=== PATIENT | female | born 1940 | race Hispanic/Latino ===

== ENCOUNTER → 2018-03-26 | Day surgery (SDC) | payer OTHER ==
[2018-03-24 11:51] LABS: BASOPHILS # (AUTO) 0.1 (0.0-0.1); BASOPHILS % 0.6 % (0.0-1.0); EOSINOPHILS # (AUTO) 0.1 (0.0-0.4); EOSINOPHILS % 0.5 % (0.0-6.0); HEMOGLOBIN 12.6 g/dL (12.0-16.0); LYMPHOCYTES # (AUTO) 1.2 (1.0-3.2); MEAN CORPUSCULAR HEMOGLOBIN 29.4 pg (28-32); MEAN CORPUSCULAR HGB CONC 34.1 g/dL (31-35); MEAN CORPUSCULAR VOLUME 86.2 fL (81-99); MONOCYTES # (AUTO) 0.6 (0.2-0.8); MONOCYTES % 6.1 % (4.4-11.3); NEUTROPHILS # (AUTO) 7.4 (2.1-6.9); NEUTROPHILS % 79.5 % (38.7-80.0); PLATELET COUNT 169 x10e3/uL (140-360); RED BLOOD COUNT 4.29 x10e6/uL (3.6-5.1); RED CELL DISTRIBUTION WIDTH 12.7 % (11.7-14.4)
--- NOTE | 2018-03-24 12:01 | Diagnostic Imaging Report ---
EXAMINATION: PA and lateral views of the chest. COMPARISON: None CLINICAL HISTORY: Preop bladder surgery DISCUSSION: Lines/tubes: None. Lungs: The lungs are well inflated and clear. There is no evidence of pneumonia or pulmonary edema. Pleura: There is no pleural effusion or pneumothorax. Heart and mediastinum: Cardiac silhouette is borderline enlarged. Pulmonary vasculature is normal. Atherosclerotic calcification of the thoracic aorta. Bones and soft tissues: No acute bony abnormalities. Degenerative changes in the thoracic spine IMPRESSION: Borderline enlarged cardiac silhouette, without acute cardiopulmonary abnormalities. Signed by: Dr. Alberto Thompson M.D. on 03/24/2018 11:55 AM
[~2018-03-26] MED LIST: ACETAMINOPHEN 1000 MG/100 ML IV ONE; ADVAIR 100-501 EACH INH; ALENDRONATE SOD70 MG PO; ASPIR 8181 MG PO; BENAZEPRIL HCL10 MG PO; BUPIVACAINE 0.25%/EPI 30ML SDV INJ ONE; CALTRATE PLUS1 EACH PO; CEFAZOLIN SOD 1 GM VIAL ONE; CLONIDINE HCL0.1 MG PO; DEXAMETHASONE SOD PHOS INJ 4 MG/ML VIAL ONE; ESTROGENS CONJUGATED VAGINAL CR 45 GM TUBE PV ONE; FENTANYL CITRATE/PF 100MCG/2 ML INJ ONE; GABAPENTIN100 MG PO; LIDOCAINE HCL 2% LOCAL INJ 5 ML SDV VIAL INJ ONE; MELOXICAM7.5 MG PO; MIDAZOLAM HCL 2 MG/2 ML VIAL ONE; ONDANSETRON HCL INJ 2 MG/ML VIAL ONE; OXYBUTYNIN CHLOR5 M1 PO; PANTOPRAZOLE SO40 MG PO; PRAMIPEXOLE DIHY1 MG PO; PROPOFOL IV EMULSION 10 MG/ML 20 ML VIAL ONE; SEVOFLURANE INHAL SOLN 250 ML PEN BTL ONE; VIT B12 PO
--- NOTE | 2018-03-26 14:13 | Operative Report ---
DATE OF PROCEDURE: March 26, 2018 PREOPERATIVE DIAGNOSIS: Genuine stress incontinence. POSTOPERATIVE DIAGNOSIS: Genuine stress incontinence. PROCEDURE: Transobturator tape and cystoscopy. COMPLICATIONS: None. ESTIMATED BLOOD LOSS: Minimal. The patient was taken to the operating room and given anesthesia, and prepped and draped in the normal sterile fashion. Was placed in the lithotomy position. Tavares catheter was inserted inside the bladder. Balloon was inflated with 10 mL of saline. UVJ was marked with an Allis clamp, and another Allis clamp was applied at the external meatus. The midurethral part of the subvaginal tissue was injected with Marcaine with epinephrine 0.25%, 10 mL. Following this, using the scalpel, a vaginal skin incision was made on top of the midurethral sling. The vagina was dissected off the underlying tissues using Metzenbaum scissors on both sides. Following this, a finger was used to dissect also the urethra from the vaginal wall. The same was repeated on the other side. At the level of the clitoris and the anterior crural line, entry points were made using the scalpel. An Obtrex trocar was passed through the entry points by finger into the pubic ramus, and guided to the outside of the vaginal wound where the sling was threaded. The trocar was removed. The same was repeated on the other side. The sling was laid down flat at the level of the midurethra. Cystoscopy was performed and showed normal bladder and urethra. The plastic cover on the sling was removed. The vagina was closed with interlocking stitches of 0 Vicryl. Vaginal pack was inserted. The patient tolerated the procedure well. Lap and needle counts were correct times 2 at the end of the procedure. Job#: [id number]
[2018-03-26 15:15] VITALS: BP 148/75
== END | disposition home or self-care (01) ==
LOC: OR 10:18
PROVIDERS: ATTEND Obstetrics & Gynecology
DX: N39.3 Stress incontinence (female) (male) (principal); J43.9 Emphysema, unspecified; I10 Essential (primary) hypertension; G25.81 Restless legs syndrome; M19.90 Unspecified osteoarthritis, unspecified site
CPT/HCPCS: 36415; 57288; 71046; 85025; 93005; C1781; J0690; J1100; J2001; J2250; J2405